=== PATIENT | male | born 1990 | race Caucasian/White ===

== ENCOUNTER 2017-01-10 16:46 | Emergency (ER) | payer BC, OTHER ==
[~2017-01-10] VITALS: Ht 180.3 cm; Wt 71.7 kg
[~2017-01-10 16:46] MED LIST: LRT5 PO
[2017-01-10 16:51] VITALS: TEMP 36.9; Ht 180.3 cm; Wt 71.7 kg
[2017-01-10] MEDS ORDERED: XYLOCAINE 1%/SOD BICARB 20 ML VIAL INFIL ONE ×2 (17:05→17:15)
--- NOTE | 2017-01-10 17:43 | DIAGNOSTIC IMAGING REPORT ---
LEFT HAND MIN 3 VIEWS ROUTINE CLINICAL HISTORY: Left third digit laceration. COMPARISON: None. DISCUSSION: There is a soft tissue injury at the level of the distal phalanx of the third finger. No acute fractures are visualized. No radiopaque foreign bodies are identified. IMPRESSION: Soft tissue injury. No acute fractures. No foreign bodies identified. Electronically signed by: Mark Anthony Flores M.D. 01/10/2017 5:42 PM Dictated Date/Time: 01/10/2017 5:41 PM
[2017-01-10 18:33] VITALS: BP 137/77; PULSE 66; O2SAT 97
--- NOTE | 2017-01-10 21:04 | EMERGENCY ROOM VISIT NOTE ---
ED Visit Note First contact with patient: 16:59 Chief Complaint: I cut my left middle finger at work. History of Present Illness: Mr. Narayanan is a 26-year-old white male who ambulates into the ED accompanied by a male friend complaining of a left middle finger laceration. Patient reports rocks only one hour ago he was at work and was pushing food through a seafood harvester. He reports he was not paying attention and subsequently his right middle finger went into the seafood harvester and he cut the distal phalanx. He reports he attempted to control bleeding prior to arrival at the hospital but did not wash the wound. Currently he is complaining of a stinging pain in the area of the wound. He rates his discomfort 2/10. The pain is nonradiating. The pain worsens with palpation. He has not identified any alleviating factors related to the pain. He reports he has not had any medications for pain prior to arrival at the hospital. Associated with his pain he reports a numbness sensation to the distal portion of the left middle finger. Review of Systems: As noted above in history of present illness. Past Medical History: Patient denies. Current Medications: Patient denies. Allergies to Medications: Patient denies. Social History: Patient is currently employed; he feels safe in his home environment; he admits to tobacco and alcohol use. Tetanus Immunization Status: Patient reports up-to-date. Physical Examination: Vital Signs: Date Time Temp Pulse Resp B/P Pulse Ox O2 Delivery O2 Flow Rate FiO2 01/10/17 18:33 66 18 137/77 97 01/10/17 16:51 36.9 90 18 145/89 97 Room Air GENERAL: 26-year-old male in mild distress due to pain, nontoxic-appearing, afebrile and hemodynamically stable. NEUROLOGICAL: Awake, alert and oriented to person, place and time. Answering questions appropriately and following commands. SKIN: Warm, dry and pink. Left Middle Finger: 2.8 cm full-thickness laceration starting over the skin just lateral to the fingernail of the distal flange and rotating anterior to approximately three quarters the width of the finger. The laceration is causing a flap. And there is active bleeding. LEFT MIDDLE FINGER: Soft tissue injury as noted above. I do not appreciate any bony deformity or crepitus. Patient has full range of motion of the PIP and DIP joint against resistance. Mild decrease in sensation but the skin is warm and pink and capillary refill is brisk. ED Course: Patient is assessed as noted above. Left Hand X-Rays: Were read by myself and the radiologist showing no acute fractures or dislocations. No foreign bodies. Wound Repair: Complexity: Basic Verbal consent was obtained after the risks and benefits were explained. The skin was prepped with betadine and a sterile field set. Wound edges of the wound was anesthetized with 1.4 ml buffered 1% lidocaine. The wound was explored for foreign bodies and none found. Copious irrigation was performed using sterile saline. With direct pressure the bleeding subsided. Debridement was not performed. The wound edges were approximated using 5-0 Ethilon with 6 simple interrupted sutures. Hemostasis and excellent approximation was achieved. Metal finger splint was applied. Patient was educated about tonight's findings and instructed on his treatment plan; he verbalizes understanding and agreement with this plan. Clinical Impression: Laceration of the left middle finger. Work related injury. Disposition: Patient discharged home in stable condition; prior to departure he was reassessed and subjectively reported he was pain-free. Plan: Comfort measures, wound care, and signs of infection were discussed with the patient. Patient was encouraged to follow-up with Workmen's Compensation or return to the ED for signs of infection and/or suture removal in 10-12 days.
== END 2017-01-10 18:35 | disposition home or self-care (01) ==
LOC: C.EDB 16:49 → C.EDD 18:35
DX: S61.213A Laceration without foreign body of left middle finger without damage to nail, initial encounter (principal); W31.82XA Contact with other commercial machinery, initial encounter; Y99.0 Civilian activity done for income or pay; Y93.G1 Activity, food preparation and clean up; Y92.89 Other specified places as the place of occurrence of the external cause; Z72.0 Tobacco use